=== PATIENT | male | born 1995 ===

== ENCOUNTER 2023-07-03 09:12 | Emergency (ER) | payer OTHER ==
[2023-07-03] MEDS ORDERED: Ketorolac 30 MG/ML SDV IVPUSH ONE (10:21)
[2023-07-03] MEDS ORDERED: Ketorolac 30 MG/ML SDV IM ONE (11:34)
[2023-07-03] MEDS ORDERED: Bacitracin/Neomycin/Polymyxin B Oint 28.4 GM Tube TOP ONE (11:34)
== END 2023-07-03 11:50 | disposition home or self-care (01) ==
LOC: KA.ED 09:12
DX: S67.22XA Crushing injury of left hand, initial encounter (principal); W23.0XXA Caught, crushed, jammed, or pinched between moving objects, initial encounter; Y99.0 Civilian activity done for income or pay
CPT/HCPCS: 73130-LT; 96372; 99283; J1885